=== PATIENT | male | born 1950 | race Caucasian/White ===

== ENCOUNTER 2017-06-07 06:48 | Inpatient (IN) ==
[2017-06-03 15:24] LABS: Appearance,Urine CLEAR; Bilirubin,Urine NEG (NEG); Color,Urine YELLOW; Glucose,Urine (UA) NEGATIVE (NEG); Leukocyte Esterase,Urine NEG /uL (NEG); Nitrate,Urine NEG (NEG); Protein,Urine NEG (NEG); Specific Gravity,Urine 1.019 (1.000-1.035); Urine Blood NEG mg/dL (<0.03); Urobilinogen,Urine NEG (NEG)
[2017-06-03 15:46] LABS: Basophils # (Auto) 0 K/mcL (0.0-0.3); Basophils % (Auto) 0.3 % (0.0-2.0); Eosinophils # (Auto) 0.1 K/mcL (0.0-0.7); Eosinophils % (Auto) 2.1 % (0.0-7.0); Granulocytes % (Auto) 67.6 % (38.0-78.0); Lymphocytes # (Auto) 1.3 K/mcL (1.5-4.8); Lymphocytes % (Auto) 21.2 % (15.5-49.0); Mean Cell Volume 95.2 fL (80.0-100.0); Mean Corpuscular HGB Conc 34.4 g/dL (31.0-36.0); Mean Corpuscular Hemoglobin 32.7 pg (26.0-34.0); Monocytes # (Auto) 0.5 K/mcL (0.1-0.9); Monocytes % (Auto) 8.8 % (1.0-12.0); Platelet Count 187 K/mcL (140-440); RBC 4.44 M/mcL (4.50-5.90); Red Cell Distribution Width 13.2 % (11.5-14.5)
[2017-06-03 15:54] LABS: Blood Urea Nitrogen 19 mg/dl (8-23)
[~2017-06-07 06:48] MED LIST: ACETAMINOPHEN 500 MG TABLET PO SCH; CELECOXIB 200 MG CAPSULE PO SCH; PREGABALIN 75 MG CAPSULE PO SCH; ceFAZolin 1 GM VIAL IV SCH; oxyCODONE 10 MG TAB.ER.12H PO SCH
[2017-06-07] MEDS ORDERED: ePHEDrine 50 MG/ML AMPUL IV ONE (09:30)
[2017-06-07] MEDS ORDERED: ONDANSETRON 4 MG/2 ML VIAL IV ONE (09:30)
[2017-06-07] MEDS ORDERED: ROPIVACAINE HCL/PF 20 ML VIAL IJ ONE (09:30)
[2017-06-07] MEDS ORDERED: LIDOCAINE HCL/PF 100 MG/5 ML SYRINGE IV ONE (09:30)
[2017-06-07] MEDS ORDERED: DEXAMETHASONE 10 MG/ML VIAL IV ONE (09:30)
[2017-06-07] MEDS ORDERED: fentaNYL 250 MCG/5 ML VIAL IV ONE (09:30)
[2017-06-07] MEDS ORDERED: SUCCINYLCHOLINE 20 MG/ML ML IV ONE (09:30)
[2017-06-07] MEDS ORDERED: TRANEXAMIC ACID 1,000 MG/10 ML VIAL IV ONE ×2 (09:30→10:52)
[2017-06-07] MEDS ORDERED: MIDAZOLAM 5 MG/5 ML VIAL IV ONE (09:30)
[2017-06-07] MEDS ORDERED: PROPOFOL 200 MG/20 ML VIAL IV ONE (09:30)
[2017-06-07] MEDS ORDERED: NALOXONE HCL 0.4 MG/ML VIAL IV PRN (10:40)
[2017-06-07] MEDS ORDERED: BENZOCAINE/MENTHOL 1 LOZENGE PO PRN ×2 (10:40→10:52)
[2017-06-07] MEDS ORDERED: FLUMAZENIL 0.1 MG/ML ML IV PRN (10:40)
[2017-06-07] MEDS ORDERED: IPRATROPIUM/ALBUTEROL 3 ML AMPUL.NEB NEB PRN (10:40)
[2017-06-07] MEDS ORDERED: diphenhydrAMINE 50 MG/ML VIAL IV PRN (10:40)
[2017-06-07] MEDS ORDERED: fentaNYL 100 MCG/2 ML VIAL IV PRN (10:40)
[2017-06-07] MEDS ORDERED: MEPERIDINE 25 MG/ML SYRINGE IV PRN (10:40)
[2017-06-07] MEDS ORDERED: HYDROmorphone 2 MG/ML SYRINGE IV PRN ×2 (10:40→10:52)
[2017-06-07] MEDS ORDERED: METHOCARBAMOL 1,000 MG/10 ML VIAL IV PRN (10:40)
[2017-06-07] MEDS ORDERED: ONDANSETRON 4 MG/2 ML VIAL IV PRN ×2 (10:40→10:52)
[2017-06-07] MEDS ORDERED: PROMETHAZINE 25 MG/ML VIAL IV PRN (10:40)
[2017-06-07] MEDS ORDERED: LACTATED RINGERS 250 ML IV PRN (10:40)
[2017-06-07] MEDS ORDERED: LACTATED RINGERS 1,000 ML IV SCH (10:45)
[2017-06-07] MEDS ORDERED: TEMAZEPAM 15 MG CAPSULE PO PRN (10:52)
[2017-06-07] MEDS ORDERED: POLYETHYLENE GLYCOL 3350 17 GM PACKET PO PRN (10:52)
[2017-06-07] MEDS ORDERED: MAGNESIUM HYDROXIDE 30 ML ORAL.SUSP PO PRN (10:52)
[2017-06-07] MEDS ORDERED: ACETAMINOPHEN 325 MG TABLET PO PRN (10:52)
[2017-06-07] MEDS ORDERED: oxyCODONE/APAP 5/325MG TABLET PO PRN (10:52)
[2017-06-07] MEDS ORDERED: BISACODYL 10 MG SUPP.RECT PR PRN (10:52)
[2017-06-07] MEDS ORDERED: KETOROLAC 15 MG/ML VIAL IV PRN (10:52)
[2017-06-07] MEDS ORDERED: FLEETS ADULT ENEMA PR PRN (10:52)
--- NOTE | 2017-06-07 10:52 | Brief Operative Note ---
Date of procedure: 06/07/17 Pre-op diagnosis: Left shoulder djd with rca and bicep tear Post-op diagnosis: same Procedure: left reverse tsa with bicep tenodesis Grafts/Implants: Yes Anesthesia: GETA Complications: none Complications Description: 06/07/17 10:51 none Surgeon: Justino Kasper Photovoltaic Installation Technician: Yunior Thomas Estimated blood loss (cc): 50 Specimens Removed/Pathology: none sent Condition: stable Disposition: PACU
[2017-06-07] MEDS ORDERED: GENTAMICIN SULFATE 800 MG/20 ML VIAL IR ONE (11:25)
--- NOTE | 2017-06-07 12:13 | XRay Report ---
CLINICAL INFORMATION: Postop total shoulder prostheses COMPARISON: None. FINDINGS: Left shoulder prostheses anatomically aligned. No osseous abnormality. Periarticular gas and soft tissue swelling seen - as expected. IMPRESSION: Negative Interpreted and Authenticated by: Agustin Amezcua 06/07/17
--- NOTE | 2017-06-07 12:51 | Operative Note ---
DATE OF OPERATION: 06/07/2017 PREOPERATIVE DIAGNOSIS: Left shoulder degenerative arthritis with rotator cuff arthropathy and biceps tendinopathy. POSTOPERATIVE DIAGNOSIS: Left shoulder degenerative arthritis with rotator cuff arthropathy and biceps tendinopathy. PROCEDURE: Left reverse total shoulder with biceps tenodesis. SURGEON: Justino Kasper M.D. METAL INSPECTOR: Yunior Thomas PA-C. ANESTHESIA: General LMA anesthesia. COMPLICATIONS: None. ESTIMATED BLOOD LOSS: 150 mL. IMPLANTS: A 36 mm metaglene with 2 mm of eccentric and 2 mm of offset with a standard metaglene with four screws. The central screw being 40 mm and then 36, 36 and 32. All had perfect purchase placed at 10 degrees of inclination, and the humeral component is a size 14 stem with a 4 mm poly. COMPLICATIONS: None. DESCRIPTION OF PROCEDURE: Patient was brought to the operating room and put to sleep with general LMA anesthesia. Once the left arm was confirmed as the operative site, he was sat in a beach chair position. The left arm was sterilely prepped and draped. A deltopectoral approach was performed, and we exposed the shoulder. This revealed a very torn biceps tendon which was released and repaired to the pectoralis major with two [id number] stitches. We then released the subscap anteriorly, exposed the joint, dislocated the shoulder, releasing the capsule 360 degrees around the glenoid, also removing the anterior capsule excising it from the subscap, protecting the axillary nerve. Once palpated, it was kept protected using retractors. We released the inferior capsule around the humeral head as well. The humeral head was positioned and then cut at its anatomical neck region. Once this was cut and preserved what rotator cuff was left, we removed the remnants of the intraarticular biceps tendon and the glenoid labrum around the glenoid was all released. A 360 degree capsulotomy around the glenoid was confirmed and placed a central pin in the glenoid with a 36 mm glenosphere or metaglene. The metaglene was positioned after reaming centrally up to a size 40. Once this was done, I then released the capsule inferiorly, made sure this was free, and then placed a 36 mm glenosphere with 2 mm offset, 2 mm of eccentricity which seemed to fit very nicely. We irrigated thoroughly. We then took the shoulder and prepared the humeral side. This was broached up to a size 14 stem. This was trialed with a standard poly. This fit very nicely, very stable. We irrigated thoroughly and then implanted a size 14 stem with a 4 mm poly at 20 degrees of retroversion. This was reduced. It was tensioned and taken through the range of motion and functioned very nicely. We irrigated thoroughly. We did not repair the subscap because it would have been too tight. We irrigated thoroughly and closed the deltopectoral interval with 2-0 Vicryl and closed the skin with 2-0 Vicryl and adhesive closure. ALEIDA:anayeli Job ID: [id number] Doc ID: [id number] Justino Kasper MD
[2017-06-07] MEDS: 0.45 % SODIUM CHLORIDE 1,000 ML IV SCH (13:29)
[2017-06-07] MEDS: 0.9 % SODIUM CHLORIDE 10 ML SYRINGE IV SCH (13:39)
[2017-06-07] MEDS ORDERED: valACYclovir 500 MG TABLET PO PRN (15:00)
[2017-06-07] MEDS: ceFAZolin 1 GM VIAL IV SCH (17:56)
[2017-06-07] MEDS: DOCUSATE SODIUM 100 MG CAPSULE PO SCH (20:31)
[2017-06-07] MEDS ORDERED: SENNOSIDES 1 TABLET PO SCH (21:00)
[2017-06-08] MEDS: traMADol 50 MG TABLET PO PRN ×2 (00:19→10:20)
[2017-06-08] MEDS: 0.9 % SODIUM CHLORIDE 10 ML SYRINGE IV SCH ×2 (00:31→04:50)
[2017-06-08] MEDS: ceFAZolin 1 GM VIAL IV SCH (00:45)
[2017-06-08] MEDS: 0.45 % SODIUM CHLORIDE 1,000 ML IV SCH (00:46)
--- NOTE | 2017-06-08 07:36 | Orthopedic Progress Note ---
Subjective Patient information: Note initiated : 06/08/17 at 7:35 am Service Date, if different from initiated Date: [] Patient: Agustin Juarez 67 y/o M admitted on 06/07/17 for Left Reverse Total Shoulder Arthroplasty. Chief Complaint: [Pt is stable this morning on post operative day 1 without any significant concerns or complaints. Patients vital signs have remained stable. Patients dressing is dry and exhibits a grossly intact neurovascular and neuromotor exam. Patients 10 point ROS is otherwise negative. ] Objective Vital signs: Vital Signs Temp Pulse Resp BP Pulse Ox 06/08/17 04:00 98.2 F 56 L 12 117/62 97 06/08/17 00:00 98.6 F 71 12 111/56 94 06/07/17 20:00 98.3 F 68 12 131/73 92 06/07/17 15:30 177/95 95 06/07/17 14:30 157/94 94 06/07/17 14:00 151/83 93 06/07/17 13:30 149/84 93 06/07/17 13:15 153/86 98 06/07/17 13:00 151/83 96 06/07/17 12:45 159/79 96 06/07/17 12:33 97.1 F 76 11 L 148/84 95 06/07/17 11:30 56 L 12 115/61 97 06/07/17 11:14 97.6 F 56 L 12 115/61 97 Intake and Output 06/07/17 06/08/17 06/08/17 21:59 05:59 13:59 Intake Total 180 / 180 1100 / 1100 Output Total 700 / 700 1050 / 1050 Balance -520 / -520 50 / 50 Intake: IV 1000 / 1000 Sodium Chloride 0.45% 1,000 ml 1000 / 1000 @ 100 mls/hr IV .Q10H [facility] Rx#: [id number] Oral 180 / 180 100 / 100 Output: Void Amount 575 / 575 1050 / 1050 Emesis 125 / 125 Other: # Voids 1 Weight 214 lb 8 oz Intake & Output: Intake & Output 06/07/17 06/08/17 06/08/17 21:59 05:59 13:59 Intake Total 180 / 180 1100 / 1100 Output Total 700 / 700 1050 / 1050 Balance -520 / -520 50 / 50 Weight 214 lb 8 oz Intake: IV 1000 / 1000 Sodium Chloride 0.45% 1,000 ml 1000 / 1000 @ 100 mls/hr IV .Q10H [facility] Rx#: [id number] Oral 180 / 180 100 / 100 Output: Void Amount 575 / 575 1050 / 1050 Emesis 125 / 125 Other: # Voids 1 Incision: Yes healing Dressing: Yes clean, Yes dry Weight bearing status: full Neurological exam IM: Yes motor sensory intact, Yes neurovascular intact Extremities exam IM: Yes Foot pink and warm, Yes neurovascular intact - Labs CBC & BMP: 06/03/17 13:48 06/03/17 13:48 Labs: Orthopedic Labs 06/03/17 13:48 PT 12.8 INR 0.9 APTT 29 06/03/17 13:48 Hgb 14.5 Hct 42.2 Assessment and Plan (1) Hx of total knee arthroplasty The patient has been educated regarding dressing care, Physical Therapy recommendations, home exercises, restrictions, and follow up appointments. The patient has had all necessary DME prescribed. The patient has remained stable during their hospital course. The patient was discharge with a stable exam. Status: Acute (2) Hx of total shoulder replacement Status: Acute
--- NOTE | 2017-06-08 07:38 | Discharge Summary ---
Ortho Discharge - TSA - Patient Instructions Diet: Regular Diet Activity: activity as tolerated, weight bearing as tolerated Total Shoulder Protocol: Leave immobilizer in place except for bathing and ROM. Abduction pillow. Continue to wear sling until seen by physician. Codman Pendulum : These exercises use momentum produced by your body to move your shoulder joint. Bend your knees and shift your weight to your front leg, then back, allowing your arm to swing in the same directions. Using the same technique, alternately shift your weight between your right and left legs, allowing your arm to swing from side to side. These exercises are also performed in counterclockwise and clockwise circular motions. Typically these exercises are performed several times per day, for a set number repetitions or minutes, such as 20 times in a row or 5 minutes at a time. Dressing Care: May shower in 2 days Patient Education: Shoulder Arthroplasty (DC) - Problem Maintenance (1) Hx of total knee arthroplasty Status: Acute (2) Hx of total shoulder replacement Status: Acute - Follow Up Plan Follow Up Appointments: Yunior Thomas PA-C [Physician Puller Over] - Disposition: Home, Self-Care Prognosis: Good Rehab Potential: Good I certify that the patient requires SNF services: No Overall status at discharge: patient is progressing back to baseline - Orders For Discharge Prescriptions: Docusate Sodium [Colace] 100 mg PO BID #60 cap traMADol [Ultram] 50 mg PO Q6HP PRN #75 tab PRN Reason: Pain
[2017-06-08] MEDS ORDERED: TAMSULOSIN 0.4 MG CAPSULE PO SCH (09:00)
[2017-06-08] MEDS: DOCUSATE SODIUM 100 MG CAPSULE PO SCH (10:01)
== END 2017-06-08 11:40 | disposition home or self-care (01) | DRG 483 ==
LOC: MEDSUR 06:48
PROVIDERS: ADMIT Orthopaedic Surgery; ATTEND Orthopaedic Surgery